=== PATIENT | female | born 1995 | race Caucasian/White ===

== ENCOUNTER 2020-01-09 12:53 | Emergency (ER) | payer MEDICAID ==
[~2020-01-09] VITALS: Ht 157.5 cm; Wt 65.3 kg
[2020-01-09 13:01] VITALS: Ht 157.5 cm; Wt 65.3 kg
[2020-01-09 16:06] VITALS: BP 101/70
== END 2020-01-09 16:06 | disposition home or self-care (01) ==
LOC: ED 12:53
DX: M54.12 Radiculopathy, cervical region (principal)